=== PATIENT | female | born 1965 | race Caucasian/White ===

== ENCOUNTER 2017-02-10 06:27 | Emergency (ER) ==
[2017-02-10] MEDS ORDERED: ASPIRIN EC PO STA (06:36)
--- NOTE | 2017-02-10 06:38 | ED.PDOC ---
General Stated Complaint: Been having jaw pain since yesterday, woke up with mid backpain, radiating to left arm. not short of breath. no palpitation. Time Seen by Physician: 06:37 Nursing and Triage Documentation Reviewed and Agree: Yes <KAILASH PEREZ - Last Filed: 02/10/17 07:04> <SOBIA VELASQUEZ - Last Filed: 02/10/17 07:39> ED Provider: Dr. SOBIA VELASQUEZ Chief Complaint: Chest Pain Primary Care Provider: ANDREW NOLASCO Cardiovascular Complaint Exam - Chest Pain Complaint/Exam Onset: Gradual Symptoms Are: Still present Timing: Constant Initial Severity: Moderate Current Severity: Moderate Location: Reports: Midsternal Pain Radiates: Reports: Left shoulder, Left arm Character: Reports: Aching Aggravating: Reports: None Alleviating: Reports: None Associated Signs and Symptoms: Reports: Back pain, Dizziness. Denies: Diaphoresis, Nausea, Vomiting, Fever, Palpitations, Cough, Hemoptysis, Abdominal pain, Short of air, Calf pain, Calf swelling Related Surgical History: Reports: None History of Healthcare-Acquired Pneumonia: Reports: No AMI/ACS Risk Factors: Reports: None TAD Risk Factors: Reports: Hypertension Pulmonary Embolism Risk Factors: Reports: None Prior Care for this Complaint: No Recent Stress Test: No Recent Echo/LV Function: No JVD Present: No Subcutaneous Emphysema Present: No Diminshed Breath Sounds: No Reproducible Chest Wall Pain: No Bilateral Pulses Present: No If Risk Factors for AMI/ACS Consider: EKG, Cardiac Enzymes, Serial Studies, Oxygen, Aspirin Differential Diagnoses: ACS, Stable Angina Quality Indicators For Acute GA or Cardiac Chest Pain: EKG in 10min., ASA if indicated <KAILASH PEREZ - Last Filed: 02/10/17 07:04> Review of Systems - Review Of Systems Constitutional: Reports: Malaise Eyes: Reports: No symptoms Ears, Nose, Mouth, Throat: Reports: No symptoms Respiratory: Reports: No symptoms Cardiac: Reports: Chest pain GI: Reports: No symptoms : Reports: No symptoms Musculoskeletal: Reports: No symptoms Skin: Reports: No symptoms Neurological: Reports: No symptoms Endocrine: Reports: No symptoms Hematologic/Lymphatic: Reports: No symptoms All Other Systems: Reviewed and Negative <KAILASH PEREZ - Last Filed: 02/10/17 07:04> Past Medical History - Past Medical History Cardiovascular: Reports: Hypertension - Surgical History General Surgical History: Reports: Orthopedic (menescal tear repair) - Family History Family History: Reports: None - Social History Smoking Status: Never smoker Hx Substance Use: No Alcohol Screening: Occasionally <KAILASH PEREZ - Last Filed: 02/10/17 07:04> - Past Medical History Previously Healthy: Yes Endocrine: Reports: None Cardiovascular: Reports: Hypertension Respiratory: Reports: None Hematological: Reports: None Gastrointestinal: Reports: None Genitourinary: Reports: None Neuro/Psych: Reports: None Musculoskeletal: Reports: None Cancer: Reports: None - Surgical History General Surgical History: Reports: None - Family History Family History: Reports: None <SOBIA VELASQUEZ - Last Filed: 02/10/17 07:39> Physical Exam - Physical Exam Appearance: Well-appearing, No pain distress, Well-nourished Eyes: RITIKA, EOMI, Conjunctiva clear ENT: Ears normal, Nose normal, Oropharynx normal Respiratory: Airway patent, Breath sounds clear, Breath sounds equal, Respirations nonlabored Cardiovascular: RRR, Pulses normal, No rub, No murmur GI/: Soft, Nontender, No masses, Bowel sounds normal, No Organomegaly Musculoskeletal: Normal strength, ROM intact, No edema, No calf tenderness Skin: Warm, Dry, Normal color Neurological: Sensation intact, Motor intact, Reflexes intact, Cranial nerves intact, Alert, Oriented Psychiatric: Affect appropriate, Mood appropriate <KAILASH PEREZ - Last Filed: 02/10/17 07:04> Interpretation - Radiology Interpretation Radiology Interpretation By: ED Physician Radiology Results: Negative Exam Interpreted: CXR - EKG Interpretation Time of EKG #1: 06:50 Rate: Normal Rhythm: Sinus ST Segment: Other <KAILASH PEREZ - Last Filed: 02/10/17 07:04> Re-Evaluation - Re-Evaluation Time of Re-Evaluation: 07:04 Status: Unchanged <KAILASH PEREZ - Last Filed: 02/10/17 07:04> Critical Care Note - Critical Care Note Total Time (mins): 0 <KAILASH PEREZ - Last Filed: 02/10/17 07:04> Course - Course Hematology/Chemistry: 02/10/17 06:31 <KAILASH PEREZ - Last Filed: 02/10/17 07:04> - Course Hematology/Chemistry: 02/10/17 06:31 02/10/17 06:31 <SOBIA VELASQUEZ - Last Filed: 02/10/17 07:39> - Course Orders, Labs, Meds: Lab Review 02/10/17 02/10/17 06:31 06:36 WBC 7.50 RBC 3.87 L Hgb 11.2 L Hct 33.4 L MCV 86.3 MCH 28.9 MCHC 33.5 RDW Coeff of Aleah 12.7 Plt Count 306 Immature Gran % (Auto) 0.3 Neut % (Auto) 46.3 Lymph % (Auto) 41.3 Benton % (Auto) 8.9 Eos % (Auto) 2.3 Baso % (Auto) 0.9 Immature Gran # (Auto) 0.0 Neut # 3.5 Lymph # 3.1 Benton # 0.7 Eos # 0.2 Baso # 0.1 D-Dimer (Manual) 252.69 Puncture Site Lr O2 Saturation 94.0 L ABG pH 7.395 ABG pCO2 36.3 ABG pO2 71.0 L ABG HCO3 22.3 ABG Total CO2 23 ABG Base Excess -3 L Mike Test + FiO2 % 21.0 Sodium 140 Potassium 3.8 Chloride 106 Carbon Dioxide 19 L Anion Gap 18.8 BUN 18 Creatinine 1.11 Estimated GFR (MDRD) 51.00 BUN/Creatinine Ratio 16.21 Glucose 151 H Calcium 8.8 Total Bilirubin 0.24 AST 18 ALT 19 Alkaline Phosphatase 108 H Total Creatine Kinase 86 Troponin I 0.0390 B-Natriuretic Peptide 29 Total Protein 7.0 Albumin 3.8 Globulin 3.2 Albumin/Globulin Ratio 1.19 Orders Category Date Time Status ABG DRAW REQUEST Stat CARDIO 02/10/17 06:36 Completed EKG-(ED ONLY) Stat CARDIO 02/10/17 06:36 Completed EKG-(ED ONLY) Stat CARDIO 02/10/17 06:49 Completed EKG-(ED ONLY) Stat CARDIO 02/10/17 08:15 Ordered NPO REMINDER: IMAGING ONCE CARE 02/10/17 06:50 Completed ED IV/MEDIPORT/POWERPORT .ONCE EMERGENCY 02/10/17 06:36 Active ABG Stat LAB 02/10/17 06:36 Completed B-TYPE NATRIURETIC PEPTIDE Stat LAB 02/10/17 06:31 Completed CBC W/ AUTO DIFF Stat LAB 02/10/17 06:31 Completed COMPREHENSIVE METABOLIC PANEL Stat LAB 02/10/17 06:31 Completed CREATINE KINASE Stat LAB 02/10/17 06:31 Completed D-DIMER Stat LAB 02/10/17 06:31 Completed TROPONIN I Stat LAB 02/10/17 06:31 Completed 0.9 % Sodium Chloride [Saline Flush] MEDS 02/10/17 06:36 Active 1 syr IVF PRN PRN Aspirin [Aspirin EC] MEDS 02/10/17 06:36 Discontinued 325 mg PO ONCE STA Morphine Sulfate [Morphine 2 mg/ml Syringe] MEDS 02/10/17 07:05 Discontinued 2 mg IVP ONCE STA Ondansetron HCl/Pf [Zofran 4 mg/2 ml] MEDS 02/10/17 07:10 Discontinued 4 mg .ROUTE .STK-MED ONE Ondansetron HCl/Pf [Zofran 4 mg/2 ml] MEDS 02/10/17 07:08 Discontinued 4 mg IVP ONCE STA CHEST, 1V AP ONLY Stat RADS 02/10/17 06:[address] CHEST PE PROTOCOL Stat RADS 02/10/17 06:50 Ordered Medications Generic Name Dose Route Start Last Admin Trade Name Freq PRN Reason Stop Dose Admin Sodium Chloride 1 syr 02/10/17 06:36 02/10/17 06:43 Saline Flush IVF 1 syr PRN PRN Administration To flush IV Discontinued Medications Generic Name Dose Route Start Last Admin Trade Name Freq PRN Reason Stop Dose Admin Aspirin 325 mg 02/10/17 06:36 02/10/17 06:43 Aspirin Ec PO 02/10/17 06:37 325 mg ONCE STA Administration Morphine Sulfate 2 mg 02/10/17 07:05 02/10/17 07:21 Morphine 2 Mg/Ml Syringe IVP 02/10/17 07:06 2 mg ONCE STA Administration Ondansetron HCl 4 mg 02/10/17 07:08 02/10/17 07:17 Zofran 4 Mg/2 Ml IVP 02/10/17 07:09 4 mg ONCE STA Administration Vital Signs: Temp Pulse Resp BP Pulse Ox 02/10/17 06:27 98.2 F 62 20 164/94 H 95 Departure - Departure Time of Disposition: 07:06 Pt referred to PMD for follow-up: No Disposition Discussed With: Patient, Family <KAILASH PEREZ - Last Filed: 02/10/17 07:04> - Departure Pt referred to PMD for follow-up: Yes Disposition Discussed With: Patient, Family <SOBIA VELASQUEZ - Last Filed: 02/10/17 07:39> - Departure Disposition: TSF SHORT-TRM HOSP Discharge Problem: Chest pain Instructions: Chest Pain (ED) Condition: Stable Allergies/Adverse Reactions: Allergies No Known Allergies Allergy (Verified 02/10/17 06:41) Home Medications: Ambulatory Orders Fluticasone Propionate [Flonase Allergy Relief] 1 spray CELE DAILY PRN 02/10/17 Metoprolol Succinate 50 mg PO DAILY 02/10/17 Multivit #34/FA/Nadh/Ubiquinon [Xyzbac Tablet] 1 tab PO DAILY 02/10/17
[2017-02-10 06:43] LABS: BASOPHILS # (AUTO) 0.1 K/uL (0-0.2); BASOPHILS % (AUTO) 0.9 % (0.0-3.0); EOSINOPHILS # (AUTO) 0.2 K/ul (0.0-0.7); EOSINOPHILS % (AUTO) 2.3 % (0.0-7.0); HEMATOCRIT 33.4 % (37.0-47.0); HEMOGLOBIN 11.2 g/dl (12.0-16.0); IMMATURE GRANULOCYTE % (AUTO) 0.3 % (0.0-5.0); LYMPHOCYTES # (AUTO) 3.1 K/uL (0.60-3.4); LYMPHOCYTES % (AUTO) 41.3 (10.0-50.0); MEAN CORPUSCULAR HEMOGLOBIN 28.9 pg (27.0-31.0); MEAN CORPUSCULAR HGB CONC 33.5 (31.8-35.4); MEAN CORPUSCULAR VOLUME 86.3 fl (81.0-99.0); MONOCYTES # (AUTO) 0.7 K/uL (0.4-2.0); MONOCYTES % (AUTO) 8.9 (0-10); NEUTROPHILS # (AUTO) 3.5 K/ul (2.0-6.9); NEUTROPHILS % (AUTO) 46.3; PLATELET COUNT 306 10^3/uL (140-440); RED BLOOD COUNT 3.87 10^6/ul (4.20-5.40)
[2017-02-10 06:45] VITALS: BP 164/94; TEMP 98.2; BMI 30.2
[2017-02-10 06:47] LABS: ABG BASE EXCESS -3 (-2.0-2.0); ABG HCO3 22.3 (22.0-26.0); ABG PCO2 36.3 mmHg (35-45); ABG PH 7.395 (7.35-7.45); ABG TCO2 23 (22.0-28.0)
[2017-02-10] MEDS ORDERED: MORPHINE 2 MG/ML SYRINGE IVP STA (07:05)
[2017-02-10] MEDS ORDERED: ZOFRAN 4 MG/2 ML IVP STA (07:08)
[2017-02-10 07:10] LABS: ALBUMIN 3.8 g/dL (3.4-5.0); ALBUMIN/GLOBULIN RATIO 1.19; ANION GAP 18.8; BILIRUBIN,TOTAL 0.24 mg/dL (0.00-1.20); BUN/CREATININE RATIO 16.21; CALCIUM 8.8 mg/dL (8.2-10.2); CREATININE 1.11 mg/dL (0.60-1.30); POTASSIUM 3.8 mmol/L (3.5-5.10); TROPONIN I 0.039 ng/ml (0.0000-0.4000)
[2017-02-10] MEDS ORDERED: ZOFRAN 4 MG/2 ML ONE (07:10)
--- NOTE | 2017-02-10 07:20 | DI ---
EXAM: Single frontal view of the chest HISTORY: Chest pain. COMPARISON: None FINDINGS: Cardiomediastinal silhouette is unremarkable. There is no pneumothorax or pleural effusio n. There is no consolidation, nodule or mass. The osseous structures are unremarkable. IMPRESSION: No acute cardiopulmonary process.
--- NOTE | 2017-02-10 07:58 | CT ---
EXAM: CTA CHEST (PE PROTOCOL) HISTORY: Chest pain TECHNIQUE: CTA with intravenous contrast. Multiplanar images were provided with 3-D reconstruction s. 100 ml of Visipaque 320 FINDINGS: No comparison CT. No pulmonary arterial filling defect is identified. The thoracic aorta is unremarkable. Normal hea rt size with no pericardial effusion. Lungs are free of infiltrate. No consolidations, vascular congestion, pleural fluid or pneumothorax . There is a tiny noncalcified 0.35-cm nodule in the upper aspect of the posterior left lower lobe. The bones appear normal. IMPRESSION: 1. No pulmonary arterial thromboembolism. 2. Lungs are free of infiltrate. 3. Tiny 0.35 cm nodule in the left lower lobe. For low risk patient, no CT followup is indicated. For high-risk a follow-up CT in 12 months can be considered.
== END 2017-02-10 08:02 | disposition short-term general hospital (02) ==
LOC: ED 06:27
DX: R07.9 Chest pain, unspecified (principal); I10 Essential (primary) hypertension
CPT/HCPCS: 36415; 80053; 82550; 82803; 83880; 84484; 85025; 85379; 93005; 93010; 96374; 96375; 99285

== ENCOUNTER 2017-02-10 08:06 | Outpatient (CLI) ==
[2017-02-10 06:45] VITALS: BMI 30.2
== END 2017-02-10 08:07 ==
LOC: AMBL 08:06
PROVIDERS: ATTEND Internal Medicine
DX: R07.9 Chest pain, unspecified (principal)

== ENCOUNTER 2018-04-13 08:46 | Outpatient (CLI) ==
--- NOTE | 2018-04-13 09:35 | CT ---
EXAM: CT of the chest without contrast History: Follow-up left lung nodule. Comparison: Chest CT 02/10/2017 Technique: Multiplanar CT images through the thorax were obtained without the administration of IV c ontrast Findings: Heart size is normal. Coronary calcifications. No pericardial effusion. No thoracic aor tic aneurysm. No pathologically enlarged thoracic lymph nodes. No consolidation. No pleural fluid and no pneumothorax. Stable benign 3 mm nodule within the left lower lobe along the major fissure. No developing lung nodules. Within the visualized upper abdomen, no acute findings. No acute osseous abnormalities. Impression: 1. Stable benign 3 mm nodule within the left lower lobe. No developing lung nodules. No additional follow-up is needed. 2. No acute intrathoracic process. 3. Coronary artery calcifications
== END 2018-04-13 08:47 | disposition home or self-care (01) ==
LOC: RAD 08:46
PROVIDERS: ATTEND Family Medicine
DX: R91.1 Solitary pulmonary nodule (principal)

== ENCOUNTER 2019-01-03 08:51 | Day surgery (SDC) ==
[2019-01-03 09:19] VITALS: TEMP 98.6
[2019-01-03] MEDS ORDERED: LIDOCAINE 1% 20 ML MDV ID STA (09:20)
[2019-01-03 09:34] LABS: URINE PREGNANCY TEST NEGATIVE (NEGATIVE)
[2019-01-03] MEDS ORDERED: VERSED ONE (10:40)
[2019-01-03] MEDS ORDERED: DIPRIVAN 20 ML VIAL IVP ONE (10:40)
[2019-01-03 13:49] VITALS: BP 124/57
--- NOTE | 2019-01-04 10:52 | OP ---
INDICATIONS FOR PROCEDURE: 53 YEAR OLD FEMALE PRESENTS FOR A SCREENING COLONOSCOPY EXAM. MEDICATIONS: SEE ANESTHESIA NOTES. PROCEDURE: SCREENING COLONOSCOPY. REPORT: The risks, benefits, alternatives and limitations were discussed in detail with the patient. Informed consent was obtained. After adequate sedation was achieved, a digital rectal exam revealed good tone, no masses. The colonoscope was introduced into the rectum and advanced under direct visual guidance to the cecum. The cecum was identified by the appendiceal orifice and IC valve. I then slowly withdrew the scope in circumferential manner and examined the mucosa quite carefully. I looked on the proximal and distal sides of folds and flexures as best as possible. I was able to retroflex the scope in the right colon as well as the left colon to increase visualization. As I withdrew the scope I noted no abnormalities throughout the entire length of the colon. The scope was also retroflexed to look at the anal canal which was unremarkable. The prep was good. The withdraw time was 7 minutes and 15 seconds. The patient tolerated the procedure well with stable vital signs and pulse oximetry throughout. IMPRESSION: 1. Normal colonoscopy RECOMMENDATIONS: 1. High fiber diet 2. Office visit as needed 3. Screening colonoscopy examination again in 10 years, sooner if there is any signs or symptoms to indicate otherwise. CC: Dr. Liz PEREZ
== END 2019-01-03 11:50 | disposition home or self-care (01) ==
LOC: SURG 08:51
PROVIDERS: ATTEND Internal Medicine Gastroenterology
DX: Z12.11 Encounter for screening for malignant neoplasm of colon (principal)
CPT/HCPCS: 81025